=== PATIENT | female | born 1980 | race Caucasian/White ===

== ENCOUNTER 2019-01-30 07:50 | Day surgery (SDC) | payer OTHER, MEDICARE, MEDICAID ==
[~2019-01-30] VITALS: Ht 139.7 cm; Wt 36.4 kg
[~2019-01-30 07:50] MED LIST: ACET-2247 PO; BACL10TA PO; CALC-898 PO; CARBL PO; CHLO4TAB96 PO; DEPOP150I IM; DIME237L2 TP; DOCU250C91 PO; IBUP-2071 PO; LEVE500T53 PO; LEVO50 PO; MULT-1203 PO; RINGERS SOLUTION,LACTATED 1,000 ML IV ONE
[2019-01-30] MEDS ORDERED: FentaNYL CITRATE-PF 100 MCG/2 ML VIAL IVP ONE (07:51)
[2019-01-30] MEDS ORDERED: LIDOCAINE/PF 2% 5 ML VIAL IM ONE (07:51)
[2019-01-30] MEDS ORDERED: ROCURONIUM BROMIDE 10 MG/ML 5 ML VIAL IVP ONE (07:51)
[2019-01-30] MEDS ORDERED: MIDAZOLAM HCL 2 MG/2 ML VIAL IVP ONE (07:51)
[2019-01-30] MEDS ORDERED: PROPOFOL 1% 20 ML VIAL IVP ONE (07:51)
[2019-01-30] MEDS ORDERED: AMPICILLIN SODIUM 1 GM/VIAL ONE (12:05)
== END 2019-01-30 14:20 | disposition home or self-care (01) ==
LOC: SURGERY 07:50
PROVIDERS: ATTEND Dentist General Practice
DX: K05.30 Chronic periodontitis, unspecified (principal); E04.9 Nontoxic goiter, unspecified; E03.9 Hypothyroidism, unspecified; M81.0 Age-related osteoporosis without current pathological fracture; G80.9 Cerebral palsy, unspecified; G40.909 Epilepsy, unspecified, not intractable, without status epilepticus; E46 Unspecified protein-calorie malnutrition; Z79.899 Other long term (current) drug therapy; Z98.890 Other specified postprocedural states
CPT/HCPCS: 36415; 41899; 84702; 93005; J0290; J2250; J2704; J3010; J3490 ×2; J7120